=== PATIENT | female | born 1970 | race Caucasian/White ===

== ENCOUNTER 2021-12-17 14:53 | Emergency (ER) | payer SELFPAY ==
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
[2021-12-17] MEDS ORDERED: KEFZOL 1 GM IM ONE (15:15)
[2021-12-17] MEDS ORDERED: Hydromorphone 1 mg/ml Injection IM ONE (15:15)
[2021-12-17 15:16] VITALS: BP 139/94
[2021-12-17] MEDS ORDERED: Compazine 10 MG/2 ML IM ONE (15:16)
[2021-12-17] MEDS ORDERED: KEFZOL 1 GM ONE (15:21)
[2021-12-17] MEDS ORDERED: Hydromorphone 1 mg/ml Injection ONE (15:22)
[2021-12-17] MEDS ORDERED: Compazine 10 MG/2 ML ONE (15:22)
[2021-12-17] MEDS ORDERED: Sterile H2O 10 ml IJ ONE (15:24)
[2021-12-17] MEDS ORDERED: EMLA Cream 5 GM TP ONE ×2 (15:34→16:15)
[2021-12-17] MEDS ORDERED: XYLOCAINE 1% HCL 20 ML MDV ONE (16:47)
[2021-12-17] MEDS ORDERED: PERCOCET TABLET 5/325MG PO STA (17:22)
[2021-12-17 17:25] VITALS: PULSE 78; O2SAT 96
[2021-12-17] MEDS ORDERED: PERCOCET TABLET 5/325MG ONE (17:25)
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
== END 2021-12-17 17:40 | disposition home or self-care (01) ==
LOC: ED 14:53
DX: S51.012A Laceration without foreign body of left elbow, initial encounter (principal); S20.312A Abrasion of left front wall of thorax, initial encounter; S40.812A Abrasion of left upper arm, initial encounter; V28.4XXA Motorcycle driver injured in noncollision transport accident in traffic accident, initial encounter; Z79.891 Long term (current) use of opiate analgesic; Z79.899 Other long term (current) drug therapy
CPT/HCPCS: 12004; 71250; 73030; 73060; 73080; 73090; 96372; 99284; J0690; J1170; A9270-GY